=== PATIENT | male | born 1980 | race Caucasian/White ===

== ENCOUNTER 2017-04-26 11:05 | Emergency (ER) | payer OTHER ==
[~2017-04-26] VITALS: Ht 180.3 cm; Wt 87.0 kg
[~2017-04-26 11:05] MED LIST: BLOOD PRESSURE MED; LISI-167 PO
[2017-04-26 11:21] VITALS: BP 130/73
== END 2017-04-26 12:27 | disposition home or self-care (01) ==
LOC: ED 12:24
DX: K64.8 Other hemorrhoids (principal); I10 Essential (primary) hypertension
CPT/HCPCS: 99283

== ENCOUNTER → 2018-08-18 | Outpatient (CLI) | payer OTHER | END | disposition home or self-care (01) | LOC: CFH 13:44 | PROVIDERS: ATTEND Family Medicine | DX: M50.321 Other cervical disc degeneration at C4-C5 level (principal); S16.1XXA Strain of muscle, fascia and tendon at neck level, initial encounter; X58.XXXA Exposure to other specified factors, initial encounter; Y93.89 Activity, other specified; Y92.89 Other specified places as the place of occurrence of the external cause; Y99.8 Other external cause status | CPT/HCPCS: 72050 ==